=== PATIENT | male | born 1970 | race Caucasian/White ===

== ENCOUNTER 2021-03-19 12:10 | Emergency (ER) | payer BC ==
[~2021-03-19 12:10] MED LIST: BENTYL 20MG TAB20 MG PO; CIPRO500 MG PO; FLAGYL500 MG PO; PREDNISONE20 MG PO; ZOFRAN ODT 4 MG4 MG PO
[2021-03-19 13:12] LABS: BUN/CREATININE RATIO 8 (0-10)
[2021-03-19 14:45] LABS: RED BLOOD COUNT 4.81 M/UL (4.20-5.50)
[2021-03-19] MEDS ORDERED: DECADRON6 MG PO (16:03)
[2021-03-19] MEDS ORDERED: PERCOCET 5/325 T1 EA PO (16:03)
[2021-03-19] MEDS ORDERED: NAPROSYN EC 50500 MG GT (16:03)
== END 2021-03-19 16:15 | disposition home or self-care (01) ==
LOC: ER1 12:10
PROVIDERS: Physician Assistant
DX: R10.32 Left lower quadrant pain (principal); M54.9 Dorsalgia, unspecified; E78.5 Hyperlipidemia, unspecified; Z88.0 Allergy status to penicillin; Z79.899 Other long term (current) drug therapy; F17.200 Nicotine dependence, unspecified, uncomplicated
CPT/HCPCS: 80053; 81001; 85025; 99284; Q9967

== ENCOUNTER 2021-06-05 12:24 | Emergency (ER) | payer BC ==
[~2021-06-05 12:24] MED LIST changes: +DECADRON6 MG PO; +NAPROSYN EC 50500 MG GT; +PERCOCET 5/325 T1 EA PO
[2021-06-05 13:47] LABS: HEMOGLOBIN 15.1 gm/dl (14.0-17.5); RED BLOOD COUNT 4.94 M/UL (4.20-5.50); WHITE BLOOD COUNT 7.4 K/UL (4.5-11.0)
[2021-06-05 14:11] LABS: BUN/CREATININE RATIO 7 (0-10)
== END 2021-06-05 17:15 | disposition home or self-care (01) ==
LOC: ER1 12:24
DX: R10.9 Unspecified abdominal pain (principal); E78.5 Hyperlipidemia, unspecified; F17.200 Nicotine dependence, unspecified, uncomplicated
CPT/HCPCS: 80053; 81001; 83690; 85025; 87086; 96374; 96375; 99284; J2270; J2405; J7030; Q9967